=== PATIENT | male | born 1990 | race Caucasian/White ===

== ENCOUNTER 2019-01-10 15:16 | Emergency (ER) | payer OTHER, SELFPAY ==
[~2019-01-10] VITALS: Ht 175.3 cm; Wt 86.4 kg
[2019-01-10 15:17] VITALS: BP 139/92
[2019-01-10] MEDS ORDERED: IBUP-1114 PO (15:49)
[2019-01-10] MEDS ORDERED: AZEL0.1S NARES (15:49)
[2019-01-10] MEDS ORDERED: CLIN150C14 PO (15:49)
[2019-01-10] MEDS ORDERED: NICO21PAT TOP (15:49)
[2019-01-10] MEDS ORDERED: KETOROLAC 60 MG/2 ML VIAL (J1885) IM ONE (16:00)
== END 2019-01-10 16:18 | disposition home or self-care (01) ==
LOC: M ED 15:16
DX: J01.90 Acute sinusitis, unspecified (principal); Z71.6 Tobacco abuse counseling; Z88.0 Allergy status to penicillin
CPT/HCPCS: 96372; 99283; J1885

== ENCOUNTER 2019-02-11 10:58 | Emergency (ER) | payer OTHER ==
[~2019-02-11] VITALS: Ht 175.3 cm; Wt 90.9 kg
[2019-02-11 10:58] VITALS: BP 147/84
[~2019-02-11 10:58] MED LIST: AZEL0.1S NARES; CLIN150C14 PO; IBUP-1114 PO; NICO21PAT TOP
== END 2019-02-11 12:45 | disposition left against medical advice (07) ==
LOC: M ED 10:58
DX: Z53.29 Procedure and treatment not carried out because of patient's decision for other reasons (principal)

== ENCOUNTER 2020-10-19 17:03 | Emergency (ER) | payer MEDICAID, OTHER, SELFPAY ==
[~2020-10-19] VITALS: Ht 175.3 cm; Wt 107.4 kg
[~2020-10-19 17:03] MED LIST changes: -CLIN150C14 PO; +CLIN150C15 PO
[2020-10-19] MEDS ORDERED: BOOSTRIX/ADACEL VACCINE (DIPHTH/PERTUSS/ACELL/TETANUS) 0.5ML SYR IM ONE (18:20)
[2020-10-19] MEDS ORDERED: metroNIDAZOLE (FLAGYL) 500MG TABLET PO ONE (18:20)
[2020-10-19] MEDS ORDERED: DOXYCYCLINE HYCLATE 100MG TABLET PO ONE (18:20)
[2020-10-19] MEDS ORDERED: FLAG500T PO (18:48)
[2020-10-19] MEDS ORDERED: DOXY100C37 PO (18:48)
[2020-10-19 19:00] VITALS: BP 140/89
== END 2020-10-19 19:07 | disposition home or self-care (01) ==
LOC: M ED 17:03
DX: S71.132A Puncture wound without foreign body, left thigh, initial encounter (principal); W54.0XXA Bitten by dog, initial encounter; Y92.410 Unspecified street and highway as the place of occurrence of the external cause; Y93.01 Activity, walking, marching and hiking; Y99.8 Other external cause status; F17.200 Nicotine dependence, unspecified, uncomplicated; Z88.0 Allergy status to penicillin

== ENCOUNTER → 2020-12-15 | Outpatient (CLI) | payer MEDICAID ==
[~2020-12-15] MED LIST changes: +DOXY100C37 PO; +FLAG500T PO
== END ==
LOC: M OUTALCOH 07:56
PROVIDERS: ATTEND Psychiatry & Neurology Psychiatry
DX: F12.20 Cannabis dependence, uncomplicated (principal)

== ENCOUNTER → 2021-01-24 | Outpatient (RCR) | payer MEDICAID ==
[~2021-01-24] MED LIST changes: -DOXY100C37 PO; +DOXY1CAP62 PO
== END ==
LOC: M OUTALCOH 12-26 13:09
PROVIDERS: ATTEND Psychiatry & Neurology Psychiatry
DX: F12.20 Cannabis dependence, uncomplicated (principal); F17.200 Nicotine dependence, unspecified, uncomplicated

== ENCOUNTER 2021-02-21 15:46 | Outpatient (RCR) | payer MEDICAID | END 2021-02-24 | LOC: M OUTALCOH 15:46 | PROVIDERS: ATTEND Psychiatry & Neurology Psychiatry | DX: F12.20 Cannabis dependence, uncomplicated (principal); F17.200 Nicotine dependence, unspecified, uncomplicated ==

== ENCOUNTER 2021-03-26 08:45 | Outpatient (RCR) | payer MEDICAID ==
[~2021-03-26 08:45] MED LIST changes: -CLIN150C15 PO; +CLIN150C17 PO
== END 2021-03-27 ==
LOC: M OUTALCOH 08:45
PROVIDERS: ATTEND Psychiatry & Neurology Psychiatry
DX: F12.20 Cannabis dependence, uncomplicated (principal); F17.200 Nicotine dependence, unspecified, uncomplicated

== ENCOUNTER → 2021-03-29 | Outpatient (CLI) | payer OTHER ==
[~2021-03-29] MED LIST changes: +DOXY-443 PO; -DOXY1CAP62 PO
== END ==
LOC: M RAD 12:44
PROVIDERS: ATTEND Pediatrics
DX: M54.5 Low back pain (principal)

== ENCOUNTER 2021-04-23 08:45 | Outpatient (RCR) | payer MEDICAID ==
[~2021-04-23 08:45] MED LIST changes: -DOXY-443 PO; +DOXY1CAP62 PO
== END 2021-04-26 ==
LOC: M OUTALCOH 08:45
PROVIDERS: ATTEND Psychiatry & Neurology Psychiatry
DX: F12.20 Cannabis dependence, uncomplicated (principal); F17.200 Nicotine dependence, unspecified, uncomplicated

== ENCOUNTER → 2021-05-16 | Outpatient (CLI) | payer OTHER ==
[~2021-05-16] MED LIST changes: +DOXY-443 PO; -DOXY1CAP62 PO
== END ==
LOC: M PLALAB 14:51
PROVIDERS: ATTEND Psychiatry & Neurology Psychiatry
DX: F12.20 Cannabis dependence, uncomplicated (principal)

== ENCOUNTER 2021-05-25 14:37 | Outpatient (RCR) | payer MEDICAID | END 2021-05-27 | LOC: M OUTALCOH 14:37 | PROVIDERS: ATTEND Psychiatry & Neurology Psychiatry | DX: F12.20 Cannabis dependence, uncomplicated (principal); F17.200 Nicotine dependence, unspecified, uncomplicated ==

== ENCOUNTER 2021-06-20 14:00 | Outpatient (RCR) | payer MEDICAID | END 2021-06-26 | LOC: M OUTALCOH 14:00 | PROVIDERS: ATTEND Psychiatry & Neurology Psychiatry | DX: F12.20 Cannabis dependence, uncomplicated (principal); F17.200 Nicotine dependence, unspecified, uncomplicated ==

== ENCOUNTER 2021-07-10 14:00 | Outpatient (RCR) | payer MEDICAID | END 2021-07-27 | LOC: M OUTALCOH 14:00 | PROVIDERS: ATTEND Psychiatry & Neurology Psychiatry | DX: F12.20 Cannabis dependence, uncomplicated (principal); F17.200 Nicotine dependence, unspecified, uncomplicated ==

== ENCOUNTER 2021-08-01 11:01 | Outpatient (RCR) | payer MEDICAID | END 2021-08-27 | LOC: M OUTALCOH 11:01 | PROVIDERS: ATTEND Psychiatry & Neurology Psychiatry | DX: F12.20 Cannabis dependence, uncomplicated (principal); F17.200 Nicotine dependence, unspecified, uncomplicated ==

== ENCOUNTER → 2021-08-05 | Outpatient (REF) ==
[2021-08-05 13:08] LABS: RSV AMPLIFICATION NEGATIVE (NEGATIVE)
== END ==
LOC: M LAB 12:22
DX: Z00.00 Encounter for general adult medical examination without abnormal findings (principal)